=== PATIENT | female | born 1995 | race Caucasian/White ===

== ENCOUNTER 2017-03-12 07:07 | Inpatient (IN) | payer OTHER ==
[~2017-03-12] VITALS: Ht 157.5 cm; Wt 84.0 kg
[2017-03-12 07:22] VITALS: BP 125/81
[2017-03-12] MEDS ORDERED: OXYTOCIN 30U/ 0.9% NaCL 500ML 500 ML IV ONE (07:51)
[2017-03-12] MEDS ORDERED: FENTANYL PF 100 MCG/2ML IVPush PRN (08:00)
[2017-03-12] MEDS ORDERED: FENTANYL PF 100 MCG/2ML IV PRN (08:00)
[2017-03-12] MEDS ORDERED: ONDANSETRON 2MG/ML, 2ML IVPush PRN (08:00)
[2017-03-12] MEDS ORDERED: NEWBORN KIT ONE (08:08)
[2017-03-12] MEDS ORDERED: LIDOCAINE 1%, 20ML ONE (08:08)
[2017-03-12] MEDS ORDERED: OXYTOCIN 30U/ 0.9% NaCL 500ML 500 ML ONE (08:09)
[2017-03-12] MEDS ORDERED: MISOPROSTOL 200 MCG TABLET ONE (08:09)
[2017-03-12 08:17] LABS: HEMATOCRIT 36.1 % (34.6-47.8); HEMOGLOBIN 12.3 g/dL (11.7-16.4); WHITE BLOOD COUNT 10.2 x10^3/uL (3.4-10)
[2017-03-12] MEDS: LACTATED RINGERS 1,000 ML IV SCH ×2 (08:30→09:16)
[2017-03-12] MEDS ORDERED: ONDANSETRON 2MG/ML, 2ML ONE (09:11)
[2017-03-12] MEDS ORDERED: BUPIVACAINE/PF 0.25% ONE (09:36)
[2017-03-12] MEDS ORDERED: FENTANYL/BUPIV./NS/PF 250 ML EPIDCONT ONE (09:36)
[2017-03-12] MEDS ORDERED: LACTATED RINGERS 1,000 ML IV SCH (09:38)
[2017-03-12] MEDS ORDERED: FENTANYL/BUPIV./NS/PF 250 ML EPIDCONT SCH (09:38)
[2017-03-12] MEDS ORDERED: NALOXONE 0.4 MG/ML, 1ML IVPush PRN (10:00)
[2017-03-12] MEDS ORDERED: LACTATED RINGERS 1,000 ML IVBOLUS PRN (10:00)
[2017-03-12] MEDS ORDERED: EPHEDRINE 50 MG/ML, 1ML IVPush PRN (10:00)
[2017-03-12] MEDS ORDERED: D5%-LACTATED RINGERS 1,000 ML IV SCH (10:00)
[2017-03-12] MEDS: OXYTOCIN 30U/ 0.9% NaCL 500ML 500 ML IV SCH (15:56)
[2017-03-12] MEDS ORDERED: OXYcodone/APAP 5/325MG TABLET PO PRN ×2 (16:00)
[2017-03-12] MEDS ORDERED: IBUPROFEN 600 MG TABLET PO PRN (16:00)
[2017-03-12] MEDS ORDERED: MISOPROSTOL 200 MCG TABLET PR PRN (16:00)
[2017-03-12] MEDS ORDERED: METHYLERGONOVINE 0.2 MG/ML IM PRN (16:00)
[2017-03-12 18:15] VITALS: BP 114/68
[2017-03-12 20:15] VITALS: BP 113/61
[2017-03-12 23:40] VITALS: BP 112/59
[2017-03-13 00:08] LABS: HEMOGLOBIN 10.2 g/dL (11.7-16.4); WHITE BLOOD COUNT 13.6 x10^3/uL (3.4-10)
[2017-03-13] MEDS: OXYTOCIN 30U/ 0.9% NaCL 500ML 500 ML IV SCH ×2 (01:56→11:56)
[2017-03-13 04:30] VITALS: BP 99/51
[2017-03-13 07:44] VITALS: BP 96/58
[2017-03-13] MEDS ORDERED: PRENATAL VIT/IRON/FA 1 EACH TABLET PO SCH (09:00)
[2017-03-13] MEDS ORDERED: IBUP-1222 PO (14:43)
== END 2017-03-13 15:51 | disposition home or self-care (01) | DRG 775 ==
LOC: LDOP 07:07 → LDIP 07:57 → 2NW 18:12
PROVIDERS: ADMIT Obstetrics & Gynecology; ATTEND Obstetrics & Gynecology
PROC: 10E0XZZ Delivery of Products of Conception, External Approach (ICD-10-PCS; principal; 2017-03-12)
PROC: 0HQ9XZZ Repair Perineum Skin, External Approach (ICD-10-PCS; 2017-03-12)
PROC: 3E0R3BZ Introduction of Anesthetic Agent into Spinal Canal, Percutaneous Approach (ICD-10-PCS; 2017-03-12)
PROC: 00HU33Z Insertion of Infusion Device into Spinal Canal, Percutaneous Approach (ICD-10-PCS; 2017-03-12)
PROC: 10907ZC Drainage of Amniotic Fluid, Therapeutic from Products of Conception, Via Natural or Artificial Opening (ICD-10-PCS; 2017-03-12)
DX: O48.0 Post-term pregnancy (principal); D64.9 Anemia, unspecified; O69.81X0 Labor and delivery complicated by cord around neck, without compression, not applicable or unspecified; Z37.0 Single live birth; O70.0 First degree perineal laceration during delivery; Z3A.41 41 weeks gestation of pregnancy; O99.02 Anemia complicating childbirth
CPT/HCPCS: 36415; 85025; 86850; 86900; J2405; J3490; J2590; J3010; J7120; J7121